=== PATIENT | female | born 1980 | race Caucasian/White ===

== ENCOUNTER → 2023-12-06 06:50 | Outpatient (REF) | payer BC, SELFPAY | LOC: RAD 06:50 | PROVIDERS: ATTENDING PHYSICIAN Physician Assistant | DX: R10.11 Right upper quadrant pain (principal); R19.8 Other specified symptoms and signs involving the digestive system and abdomen; E03.9 Hypothyroidism, unspecified; R59.1 Generalized enlarged lymph nodes | CPT/HCPCS: 76536; 76700 ==

== ENCOUNTER → 2025-01-19 09:02 | Outpatient (REF) | payer BC, SELFPAY | LOC: WDC 09:02 | PROVIDERS: ATTENDING PHYSICIAN Nurse Practitioner Adult Health; FAMILY PHYSICIAN Physician Assistant | DX: N63.20 Unspecified lump in the left breast, unspecified quadrant (principal) | CPT/HCPCS: 76642; 77062; 77066 ==